=== PATIENT | female | born 1960 | race Caucasian/White ===

== ENCOUNTER 2017-01-13 16:25 | Observation (INO) | payer OTHER ==
[~2017-01-13] VITALS: Ht 160 cm; Wt 67.3 kg
[2017-01-13 17:12] LABS: BASOPHILS 0.1 % (0-2); EOSINOPHILS 1.1 % (0-7); HEMATOCRIT 39.6 % (36.0-48.0); HEMOGLOBIN 13.2 g/dL (12-16); IMMATURE GRANULOCYTES 0.2 % (0-5); LYMPHOCYTES 18.6 % (15-50); MCH 30.6 pg (26.0-34.0); MCHC 33.3 g/dL (31.0-37.0); MCV 91.9 fL (80.0-100.0); MEAN PLATELET VOLUME 10.1 fL (7.4-10.4); MONOCYTES 8.8 % (2-11); NEUTROPHILS 71.2 % (40-80); PLATELET COUNT 281 10x3/uL (130-400); RBC 4.31 10x6/uL (4.00-5.40); RDW 14.7 % (11.5-14.5); WBC 8.6 10x3/uL (4.8-10.8)
[2017-01-13 17:37] LABS: ALBUMIN 3.6 g/dL (3.4-5.0); ALKALINE PHOSPHATASE 72 U/L (46-116); ALT (SGPT) 29 U/L (10-68); BILIRUBIN - TOTAL 0.29 mg/dL (0.2-1.3); CALC OSMOLALITY 282 mosm/kg (275-300); CALCIUM 9.5 mg/dL (8.5-10.1); CARBON DIOXIDE 27.7 mmol/L (21.0-32.0); CHLORIDE - SERUM 106 mmol/L (98-107); CREATININE - SERUM 0.9 mg/dL (0.6-1.3); GLUCOSE 107 mg/dL (74-106); POTASSIUM - SERUM 3.7 mmol/L (3.5-5.1); PROTEIN - SERUM 6.8 g/dL (6.4-8.2); SODIUM 143 mmol/L (136-145); UREA NITROGEN 8 mg/dL (7-18); eGFR NON AFRICAN AMERICAN 69 mL/min (90-120)
[2017-01-13 17:53] LABS: CHOL - HDL RATIO 2.8 ratio (2.3-4.1); CHOLESTEROL, TOTAL 195 mg/dL (0-200); CKMB 0.5 U/L (0.0-3.6); CREATINE KINASE 71 UL (21-215); HDL CHOLESTEROL 69 mg/dL (32-96); LDL CHOLESTEROL 105 mg/dL (0-100); LDL-HDL RATIO 1.5 ratio (1.5-3.5); TRIGLYCERIDE 107 mg/dL (30-200)
[2017-01-13 17:54] LABS: TROPONIN-I < 0.017 ng/mL (0.000-0.060)
[2017-01-13 18:20] LABS: APPEARANCE CLEAR (CLEAR); BILIRUBIN NEGATIVE (NEGATIVE); COLOR YELLOW (YELLOW); GLUCOSE NEGATIVE (NEGATIVE); KETONE NEGATIVE (NEGATIVE); LEUKOCYTE ESTERASE TRACE (NEGATIVE); NITRITE NEGATIVE (NEGATIVE); PROTEIN NEGATIVE (NEGATIVE); UROBILINOGEN NORMAL (NORMAL)
[2017-01-13 18:22] LABS: BACTERIA FEW /hpf (NONE SEEN); EPITHELIAL CELLS 0-5 /hpf (0-5); RED CELLS - URINE OCC /hpf (0-5); WHITE CELLS - URINE 0-5 /hpf (0-5)
[2017-01-13] MEDS ORDERED: XARELTO20 MG PO (22:08)
[2017-01-13] MEDS ORDERED: AMBIEN10 MG PO (22:09)
[2017-01-13] MEDS ORDERED: TYLENOL #4 W/CO1 TAB PO (22:09)
[2017-01-13] MEDS ORDERED: PROTONIX40 MG PO (23:23)
[2017-01-13] MEDS ORDERED: NEURONTIN 300300 MG PO ×2 (23:25→23:26)
[2017-01-13] MEDS ORDERED: VITAMIN B COMPL1 TAB PO (23:28)
[2017-01-13] MEDS ORDERED: VITAMIN D GUMMIES (23:28)
[2017-01-13] MEDS ORDERED: MULTIVITAMIN GUMMIES (23:28)
[2017-01-14] VITALS: BP 137/81
[2017-01-14 00:18] VITALS: BP 137/81; Ht 160 cm; Wt 67.3 kg
--- NOTE | 2017-01-14 03:08 | NUR ---
CHIEF ORTHOPTIST AT BEDSIDE FOR VS. NEEDS ADDRESSED AT THIS TIME. CALL LIGHT IN REACH. WILL CONT TO MONITOR.
[2017-01-14 04:00] VITALS: BP 147/51
[2017-01-14 08:00] VITALS: BP 128/68
[2017-01-14 12:00] VITALS: BP 118/72
--- NOTE | 2017-01-14 12:10 | NUR ---
CALLED AND TALKED TO JASON FROM DR CASILLAS OFFICE AND WAS GIVEN THE OKAY FOR PATIENT TO BE DISCHARGED.
--- NOTE | 2017-01-14 12:47 | NUR ---
IV AND TELEMETRY DCD. DC PLANS GIVEN. UNDERSTANDING VOICED. ESCORTED TO CAR BY W/C.
--- NOTE | 2017-01-15 14:19 | CN ---
PATIENT NAME:VINCE CARTER MEDICAL RECORD: [id number] : 64 LOCATION:[facility] D.[id number] ADMIT DATE: 01/13/17 ACCOUNT: [id number] CONSULTING PHYSICIAN: PHYLLIS CASILLAS MD REFERRING PHYSICIAN: NIXON SUERO MD CARDIOLOGY CONSULT PRIMARY CARE/ADMITTING PHYSICIAN: Chong Suero MD HISTORY OF PRESENT ILLNESS: This is a 56-year-old female with no known history of coronary artery disease. She has a history of Sjogren's syndrome and deep vein thrombosis. She was status post surgery. She was visiting [facility]. She has a history of chest pain, somewhat atypical. Pulmonary embolus has been ruled out. Enzymes are negative. We were asked to see her concerning cardiovascular status. PAST MEDICAL HISTORY: 1. History of Sjogren's syndrome. 2. Raynaud's phenomenon. 3. Neuropathy. CURRENT MEDICATIONS: 1. Protonix 40 milligrams by mouth every day. 2. Ambien 10 milligrams by mouth at bedtime. 3. Neurontin 300 milligrams twice a day, 600 milligrams at bedtime. 4. Xarelto 20 milligrams every day. ALLERGIES: Sulfa. Erythromycin. SOCIAL HISTORY: She is a nonsmoker, nondrinker. She typically lives in [place]. No set exercise program. She is in [facility] from surgery. REVIEW OF SYSTEMS: Standard. PHYSICAL EXAMINATION: GENERAL: This is a middle-aged female in no acute distress. VITAL SIGNS: Blood pressure 128/68. Pulse 71 and regular. HEAD, EYES, EARS, NOSE, AND THROAT: Normocephalic, atraumatic. NECK: No jugular venous distention or bruit. HEART: Regular. LUNGS: Lung reyes clear. ABDOMEN: Soft, nontender. PULSES: 2+, no edema. NEUROLOGIC: Grossly intact. ELECTROCARDIOGRAM: Normal. IMPRESSION AND PLAN: Chest pain. She defers further workup and would rather be seen back in [place]. No contraindication to this given her negative enzymes, etc. I will be glad to see her again if she changes her mind. CONSULT REPORT [id number] EMMAVINCEPHYLLIS GOMES MD at 1419 CC: [id number] DICTATION DATE: 01/14/17 1200 CABLE TENDER: DM 01/14/17 1602 DIS IN 01/14/17 [facility] [address] [place] [address]
== END 2017-01-14 13:05 | disposition home or self-care (01) ==
LOC: D.ER 16:25 → D.M2 21:20 → OBSVTIME 21:20 → D.M2 21:20
PROVIDERS: Emergency Medicine; ADMIT Emergency Medicine
DX: R07.9 Chest pain, unspecified (principal); M35.00 Sjogren syndrome, unspecified; I73.00 Raynaud's syndrome without gangrene; Z86.718 Personal history of other venous thrombosis and embolism; Z79.01 Long term (current) use of anticoagulants